=== PATIENT | male | born 1990 | race Caucasian/White ===

== ENCOUNTER 2020-09-14 19:56 | Emergency (ER) | payer BC ==
[~2020-09-14] VITALS: Ht 175.3 cm; Wt 63.5 kg
[2020-09-14 20:01] VITALS: BP_SYST 122
[2020-09-14] MEDS ORDERED: IBUP-1969 PO (20:47)
[2020-09-14 20:56] VITALS: BP_SYST 128
== END 2020-09-14 20:56 | disposition home or self-care (01) ==
LOC: SED 19:56
DX: S29.9XXA Unspecified injury of thorax, initial encounter (principal); R07.1 Chest pain on breathing; W18.39XA Other fall on same level, initial encounter; Y93.89 Activity, other specified; Y92.89 Other specified places as the place of occurrence of the external cause; Y99.8 Other external cause status
CPT/HCPCS: 71045; 71100; 99284

== ENCOUNTER 2021-01-09 15:08 | Emergency (ER) | payer OTHER, MEDICAID ==
[~2021-01-09] VITALS: Ht 175.3 cm; Wt 63.5 kg
[~2021-01-09 15:08] MED LIST: IBUP-1969 PO
--- NOTE | 2021-01-09 15:20 | NUR ---
Patient triaged and placed in waiting room. VSS and patient appears in no acute distress at this time. Accompanied by self , awaiting available bed, and MD notified of need for MSE.
[2021-01-09 15:38] VITALS: BP_SYST 115
--- NOTE | 2021-01-09 15:45 | NUR ---
Dr Chiang evaluating patient at bedside
[2021-01-09] MEDS ORDERED: IBUPROFEN 800 MG TABLET PO ONE (16:30)
--- NOTE | 2021-01-09 18:47 | NUR ---
Pt eloped from ER at this time
== END 2021-01-09 18:47 | disposition left against medical advice (07) ==
LOC: SED 15:08
DX: S13.4XXA Sprain of ligaments of cervical spine, initial encounter (principal); S20.211A Contusion of right front wall of thorax, initial encounter; Z79.899 Other long term (current) drug therapy; V49.49XA Driver injured in collision with other motor vehicles in traffic accident, initial encounter; Y93.89 Activity, other specified; Y92.89 Other specified places as the place of occurrence of the external cause; Y99.8 Other external cause status
CPT/HCPCS: 71046-TC; 72040-TC; 99284

== ENCOUNTER 2021-01-11 16:40 | Emergency (ER) | payer OTHER, BC ==
[~2021-01-11] VITALS: Ht 175.3 cm; Wt 63.5 kg
[2021-01-11 16:50] VITALS: BP_SYST 143
--- NOTE | 2021-01-11 16:50 | NUR ---
Pt to [facility] for evaluation.
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
--- NOTE | 2021-01-11 18:35 | NUR ---
Dr. Padilla to bedside to assess.
[2021-01-11] MEDS ORDERED: LIDO1ADH77 TP (19:09)
[2021-01-11] MEDS ORDERED: CYCL10TA24 PO (19:09)
[2021-01-11] MEDS ORDERED: NAPR-688 PO (19:09)
--- NOTE | 2021-01-11 19:17 | NUR ---
Patient given written and verbal discharge instructions and verbalizes understanding. Dr. Randy RACHEL MD discussed with patient the results and treatment provided. Patient in stable condition. ID arm band removed. Rx given per MD. Patient educated on pain management and to follow up with PMD. Pain Scale 0/10. Opportunity for questions provided and answered. Medication side effect fact sheet provided.
[2021-01-11 19:19] VITALS: BP_SYST 143
== END 2021-01-11 19:17 | disposition home or self-care (01) ==
LOC: SED 16:40
DX: S16.1XXA Strain of muscle, fascia and tendon at neck level, initial encounter (principal); R07.89 Other chest pain; Z79.899 Other long term (current) drug therapy; V49.49XA Driver injured in collision with other motor vehicles in traffic accident, initial encounter; Y93.89 Activity, other specified; Y92.89 Other specified places as the place of occurrence of the external cause; Y99.8 Other external cause status
CPT/HCPCS: 99283